=== PATIENT | female | born 1985 | race Caucasian/White ===

== ENCOUNTER 2018-10-02 11:59 | Emergency (ER) | payer BC ==
[~2018-10-02] VITALS: Ht 175.3 cm; Wt 145.1 kg
[2018-10-02 12:21] VITALS: BP 120/95
[2018-10-02] MEDS ORDERED: NS 1000ML 1,000 ML STA (12:28)
[2018-10-02 12:44] LABS: BASOPHIL % 0.3 % (0.0-0.2); EOSINOPHIL # 0.1 10^3/uL (0.0-0.2); HEMOGLOBIN 14.8 g/dL (12.0-15.0); LYMPHOCYTES # 3.3 10^3/uL (1.0-4.8); MEAN CELL HGB 25.8 pg (26-34); MEAN CELL HGB CONCENTRATION 33.1 g/dL (33-37); MEAN CORP VOLUME 77.9 fL (78-100); MEAN PLATELET VOLUME 10.2 fL (7.8-11.0); MONOCYTES # 1.2 10^3/uL (0.3-0.8); MONOCYTES % 8.9 % (5.0-12.0); NEUTROPHIL # 8.9 10^3/uL (1.8-7.7); NEUTROPHILS % 65.2 % (41.0-85.0); RED CELL DISTRIBUTION WIDTH 14.2 % (11.5-14.5); WHITE BLOOD CELL 13.7 10^3/uL (4.5-11.0)
--- NOTE | 2018-10-02 12:52 | PCM.EKG ---
[facility] Test Date: 2018-10-02 Test Time: 12:51:27 Pat Name: ALEK EDGE Department: Patient ID: [id number] Room: Gender: F K 9 Handler/ Deputy: : 1985 Requested By: TATI GARDNER Order Number: [id number] Reading MD: Tati Gardner Measurements Intervals [place] Rate: 110 P: 52 ID: [id number] QRS: 20 QRSD: 88 T: 53 QT: 320 QTc: 433 Interpretive Statements Sinus tachycardia Otherwise normal ECG No previous ECG available for comparison Electronically Signed On 10-02-2018 23:35:06 [employer]INTENANCE by Tati Gardner Please click the below link to view image of tracing.
[2018-10-02 12:55] LABS: BILIRUBIN,URINE NEGATIVE (NEGATIVE); UROBILINOGEN,URINE NORMAL (NEGATIVE)
[2018-10-02 13:01] LABS: CARBON DIOXIDE 25.2 mmol/L (20.0-32)
[2018-10-02 13:02] LABS: APPEARANCE,URINE SLIGHTLY HAZY (CLEAR); UA COLOR AMBER (YELLOW)
[2018-10-02 13:03] LABS: YEAST,URINE MODERATE
--- NOTE | 2018-10-02 13:36 | ER.PDOC ---
General Chief Complaint: Nausea,Vomiting,Diarrhea Stated Complaint: FATIGUE, ELEVATED BP,N/V Time seen by MD: 12:20 Source: patient Exam Limitations: no limitations History of Present Illness Initial Comments Pt started feeling dizzy and nauseous this morning, she started several new medicines this week, including diabetes Occurred: yesterday Severity: moderate Associated Symptoms: nausea/vomiting, light headness Past Medical History Medical History: diabetes, hypertension Social History Smoking: non-smoker Alcohol Use: none Drug Use: none Review of Systems Constitutional: see HPI Ears: see HPI, dizziness Psychiatric/Neurological: see HPI All Other Systems: Reviewed and Negative Physical Exam General Appearance: alert, no distress EENT: nml eye inspection, PERRL, no nystagmus, nml ENT inspection, pharynx nml , TM's nml Neck: supple Respiratory: no resp distress, breath sounds nml CVS: reg rate & rhythm, heart sounds.nml Abdomen: non-tender, no organomegaly, no distention Skin: color nml, no rash, warm/dry Extremities: non-tender, nml ROM, no pedal edema Neuro/Psych: nml orientation, nml speech/cognition, nml mood/affect Cranial Nerves: nml as tested, no evidence of acute CVA Cerebellar: nml as tested Sensorimotor: nml motor, nml sensation Results/Orders Results/Orders Laboratory Tests Test 10/02/18 12:36 10/02/18 12:51 White Blood Count 13.7 10^3/uL (4.5-11.0) Red Blood Count 5.74 10^6/uL (4.00-5.20) Hemoglobin 14.8 g/dL (12.0-15.0) Hematocrit 44.7 % (36.0-46.0) Mean Corpuscular Volume 77.9 fL (78-100) Mean Corpuscular Hemoglobin 25.8 pg (26-34) Mean Corpuscular Hemoglobin Concent 33.1 g/dL (33-37) Red Cell Distribution Width 14.2 % (11.5-14.5) Platelet Count 343 10^3/uL (150-400) Mean Platelet Volume 10.2 fL (7.8-11.0) Neutrophils (%) (Auto) 65.2 % (41.0-85.0) Lymphocytes (%) (Auto) 24.0 % (24.0-44.0) Monocytes (%) (Auto) 8.9 % (5.0-12.0) Neutrophils # (Auto) 8.9 10^3/uL (1.8-7.7) Lymphocytes # (Auto) 3.3 10^3/uL (1.0-4.8) Monocytes # (Auto) 1.2 10^3/uL (0.3-0.8) Absolute Immature Granulocyte (auto 0.08 10^3 u/L (0-2) Eosinophils % 1.0 % (0.0-5.0) Basophils % 0.3 % (0.0-0.2) Basophils # 0.0 10^3/uL (0.0-0.1) Eosinophil Count 0.1 10^3/uL (0.0-0.2) Sodium Level 133 mmol/L (132-145) Potassium Level 3.9 mmol/L (3.6-5.2) Chloride Level 97.0 mmol/L (96-109) Carbon Dioxide Level 25.2 mmol/L (20.0-32) Anion Gap 14.7 Blood Urea Nitrogen 15 mg/dL (7-18) Creatinine 0.96 mg/dL (0.59-1.40) Estimated GFR () 81.0 (>/=60) BUN/Creatinine Ratio 15.0 Glucose Level 398 mg/dL (70-110) Calcium Level 9.0 mg/dL (8.4-10.5) Total Bilirubin 0.8 mg/dL (0.2-1.0) Aspartate Amino Transf (AST/SGOT) 30 U/L (0-35) Alanine Aminotransferase (ALT/SGPT) 74 U/L (12-78) Alkaline Phosphatase 102 U/L (50-136) Total Protein 6.8 g/dL (6.4-8.2) Albumin 3.2 g/dL (3.4-5.0) Globulin 3.6 Amylase Level 21 U/L (25-115) Lipase 126 U/L (114-286) Percent Immature Gran (Cell Imm) 0.60 % (0.00-0.50) Urine Collection Type UNKNOWN Urine Color ROGER (YELLOW) Urine Appearance SLIGHTLY HAZY (CLEAR) Urine Bilirubin NEGATIVE MG/DL (NEGATIVE) Urine Ketones 50 mg/dL (NEGATIVE) Urine Specific [place] 1.020 (1.005-1.035) Urine pH 5 (5.0-6.0) Urine Protein 15 mg/dL (NEGATIVE) Urine Urobilinogen NORMAL (NEGATIVE) Urine Nitrate NEGATIVE (NEGATIVE) Urine Leukocyte Esterase NEGATIVE (NEGATIVE) Urine Blood NEGATIVE (NEGATIVE) Urine RBC NONE SEEN RBC/HPF (NONE Urine WBC 0-2 WBC/HPF (0-2) Urine Squamous Epithelial Cells MODERATE #/HPF (FEW) Urine Bacteria RARE (NONE SEEN) Urine Yeast MODERATE Urine Glucose 1000 (NEGATIVE) Administered Medications Medications (Trade) Dose Ordered Sig/Elvira Route PRN Reason Start Time Stop Time Status Last Admin Dose Admin Sodium Chloride 1,000 ml @ 1,000 mls/hr Q1H STAT IV 10/02/18 12:28 10/02/18 13:27 DC 10/02/18 13:10 Departure Time of Disposition: 13:37 Disposition: 01 HOME, SELF-CARE Impression: Primary Impression: Dizziness Condition: Stable Patient Instructions: Dizziness, [id number] Referrals: PCP,UNKNOWN (PCP) PRIMARY CARE PROVIDER Duration or Time Spent with Pa: 20 TATI DUNCAN MD Oct 02, 2018 13:36
[2018-10-02 14:06] VITALS: BP 120/95
== END 2018-10-02 13:50 | disposition home or self-care (01) ==
LOC: ER 11:59
DX: R42 Dizziness and giddiness (principal); R82.90 Unspecified abnormal findings in urine; E11.9 Type 2 diabetes mellitus without complications; I10 Essential (primary) hypertension
CPT/HCPCS: 36415; 80053; 81000; 82150; 83690; 85025; 87086; 93005; 96360; 99285